=== PATIENT | female | born 1970 | race African-American/Black ===

== ENCOUNTER 2020-10-10 09:12 | Emergency (ER) | payer MEDICAID, OTHER ==
[~2020-10-10] VITALS: Ht 167.6 cm; Wt 64.9 kg
[2020-10-10 10:01] VITALS: BP 127/87
[2020-10-10 10:33] LABS: Urine Bacteria NONE SEEN /hpf (None Seen); Urine Blood Negative /uL (Negative); Urine Mucus FEW (None Seen); Urine Specific Gravity 1.032 (1.001-1.035); Urine WBC 37 /hpf (0 - 5)
== END 2020-10-10 10:22 | disposition home or self-care (01) ==
LOC: ER 09:12
DX: N39.0 Urinary tract infection, site not specified (principal); Z88.2 Allergy status to sulfonamides
CPT/HCPCS: 81001

== ENCOUNTER 2021-01-28 11:05 | Emergency (ER) | payer MEDICAID ==
[~2021-01-28] VITALS: Ht 167.6 cm; Wt 63.5 kg
[2021-01-28 12:09] VITALS: BP 143/82
[2021-01-28] MEDS ORDERED: CIPR-173 PO (12:24)
[2021-01-28] MEDS ORDERED: PHEN200T16 PO (12:24)
[2021-01-28 12:32] LABS: Urine Bacteria FEW /hpf (None Seen); Urine Blood 3+ /uL (Negative); Urine Mucus FEW (None Seen); Urine Specific Gravity 1.027 (1.001-1.035); Urine WBC 62 /hpf (0 - 5)
== END 2021-01-28 12:31 | disposition home or self-care (01) ==
LOC: ER 11:05
DX: R30.9 Painful micturition, unspecified (principal); R35.0 Frequency of micturition; R39.15 Urgency of urination; M54.50 Low back pain, unspecified; Z90.49 Acquired absence of other specified parts of digestive tract; Z79.2 Long term (current) use of antibiotics; Z79.899 Other long term (current) drug therapy; Z88.2 Allergy status to sulfonamides
CPT/HCPCS: 81001

== ENCOUNTER 2021-05-17 15:48 | Emergency (ER) | payer MEDICAID ==
[~2021-05-17] VITALS: Ht 167.6 cm; Wt 65.8 kg
[~2021-05-17 15:48] MED LIST: CIPR-173 PO; PHEN200T16 PO
[2021-05-17 18:43] LABS: Basophils # (auto) 0 10 ^3/uL (0-0.2); Basophils % (auto) 0.3 % (0.0-2.0); Eosinophils # (auto) 0.1 10 ^3/uL (0-0.8); Eosinophils % (auto) 1.4 % (0.0-7.0); Hematocrit 30.4 % (36.0-46.0); Hemoglobin 10.2 g/dL (12.2-16.2); Lymphocytes # (auto) 1.4 10 ^3/uL (0.4-5.4); Mean Corpuscular Hemoglobin 31.1 pg (28.0-32.0); Mean Corpuscular Hgb Conc. 33.6 g/dL (32.0-36.0); Mean Corpuscular Volume 92.5 fL (80.0-100.0); Monocytes # (auto) 0.1 10 ^3/uL (0-1.3); Monocytes % (auto) 2.1 % (0.0-12.0); Neutrophils # (auto) 3.8 10 ^3/uL (1.6-8.6); Neutrophils % (auto) 70.2 % (37.0-80.0); Nucleated Red Blood Cells % 0.1 %; Red Blood Cells 3.29 10^6/uL (4.0-5.20); Red Cell Distribution Width 25.2 % (11.8-14.3); White Blood Cell 5.5 10^3/uL (4.4-10.8)
[2021-05-17 18:59] LABS: INR 1.04 (0.9-1.15); Partial Thromboplastin Time 23.6 sec (23.6-33.0)
[2021-05-17 19:03] LABS: Urine Bacteria FEW /hpf (None Seen); Urine Blood 1+ /uL (Negative); Urine Hyaline Cast FEW /lpf (0 - 2); Urine Mucus FEW (None Seen); Urine Specific Gravity 1.029 (1.001-1.035); Urine WBC 3 /hpf (0 - 5)
[2021-05-17 19:07] LABS: Albumin 4.7 g/dL (3.4-5.0); Calcium 9.8 mg/dL (8.5-10.1)
[2021-05-17 19:09] LABS: Bilirubin, Total 0.6 mg/dL (0.2-1.0); Total Protein 9.4 g/dL (6.4-8.2)
[2021-05-17] MEDS ORDERED: CEPH-322 PO (21:57)
[2021-05-17 22:13] VITALS: BP 140/100
[2021-05-17] MEDS ORDERED: KETOROLAC TROMETH 60MG/2ML VIAL IM ONE (22:15)
== END 2021-05-17 22:27 | disposition home or self-care (01) ==
LOC: ER 15:48
DX: N39.0 Urinary tract infection, site not specified (principal); N93.8 Other specified abnormal uterine and vaginal bleeding; Z90.49 Acquired absence of other specified parts of digestive tract; Z79.2 Long term (current) use of antibiotics; Z79.899 Other long term (current) drug therapy; Z88.2 Allergy status to sulfonamides
CPT/HCPCS: 36415; 80053; 81001; 81025; 84702; 85025; 85610; 85730; 86850; 86900; 86901; 93005

== ENCOUNTER → 2021-12-24 | Emergency (ER) | payer MEDICAID ==
[~2021-12-24] VITALS: Ht 167.6 cm; Wt 66.0 kg
[~2021-12-24] MED LIST changes: +CEPH-322 PO; +HYDROcodone-ACET 10/325MG TAB PO ONE; +cefTRIAXone 1GM/50ML D5W 50 ML IV ONE
[2021-12-24 13:54] VITALS: BP 119/79
[2021-12-24 14:41] LABS: Basophils # (auto) 0 10 ^3/uL (0-0.2); Basophils % (auto) 0.8 % (0.0-2.0); Eosinophils # (auto) 0.1 10 ^3/uL (0-0.8); Eosinophils % (auto) 2.7 % (0.0-7.0); Hemoglobin 8.8 g/dL (12.2-16.2); Lymphocytes # (auto) 1.5 10 ^3/uL (0.4-5.4); Monocytes # (auto) 0.3 10 ^3/uL (0-1.3); White Blood Cell 4.8 10^3/uL (4.4-10.8)
[2021-12-24 14:45] LABS: Hematocrit 28.6 % (36.0-46.0); Lymphocytes % (auto) 30.6 % (10.0-50.0); Mean Corpuscular Hemoglobin 24.7 pg (28.0-32.0); Mean Corpuscular Hgb Conc. 30.8 g/dL (32.0-36.0); Mean Corpuscular Volume 80.2 fL (80.0-100.0); Monocytes % (auto) 6.3 % (0.0-12.0); Neutrophils # (auto) 2.9 10 ^3/uL (1.6-8.6); Neutrophils % (auto) 59.6 % (37.0-80.0); Nucleated Red Blood Cells % 0.1 %; Red Blood Cells 3.57 10^6/uL (4.0-5.20)
[2021-12-24 14:58] LABS: INR 1.01 (0.9-1.15); Partial Thromboplastin Time 25.1 sec (24.6-33.4)
[2021-12-24 15:03] LABS: BUN/Creatinine Ratio 9.9; Calcium 8.4 mg/dL (8.5-10.1); Potassium 4.1 mmol/L (3.5-5.1)
[2021-12-24 15:05] LABS: Bilirubin, Total 0.2 mg/dL (0.2-1.0); Total Protein 8.2 g/dL (6.4-8.2)
[2021-12-24 16:30] LABS: Urine Bacteria NONE SEEN /hpf (None Seen); Urine Blood 3+ /uL (Negative); Urine Specific Gravity 1.023 (1.001-1.035); Urine WBC 48 /hpf (0 - 5)
== END | disposition left against medical advice (07) ==
LOC: ER 13:30
DX: N93.8 Other specified abnormal uterine and vaginal bleeding (principal); N39.0 Urinary tract infection, site not specified; D25.9 Leiomyoma of uterus, unspecified; Z90.49 Acquired absence of other specified parts of digestive tract; Z90.89 Acquired absence of other organs; Z88.2 Allergy status to sulfonamides; Z53.29 Procedure and treatment not carried out because of patient's decision for other reasons
CPT/HCPCS: 36415; 76830; 76856; 80053; 81001; 85025; 85610; 85730; 86850; 86900; 86901

== ENCOUNTER 2022-06-01 12:38 | Emergency (ER) | payer MEDICAID ==
[~2022-06-01 12:38] MED LIST changes: -HYDROcodone-ACET 10/325MG TAB PO ONE; -cefTRIAXone 1GM/50ML D5W 50 ML IV ONE
[2022-06-02] MEDS ORDERED: CIPR500T4 PO (13:57)
== END 2022-06-01 13:23 | disposition left against medical advice (07) ==
LOC: ER 12:38
DX: M54.89 Other dorsalgia (principal); Z53.21 Procedure and treatment not carried out due to patient leaving prior to being seen by health care provider

== ENCOUNTER 2022-06-02 07:42 | Emergency (ER) | payer MEDICAID ==
[~2022-06-02] VITALS: Ht 167.6 cm; Wt 70.9 kg
[2022-06-02 08:41] LABS: Urine Bacteria FEW /hpf (None Seen); Urine Blood Negative /uL (Negative); Urine Hyaline Cast FEW /lpf (0 - 2); Urine Mucus FEW (None Seen); Urine Specific Gravity 1.022 (1.001-1.035); Urine WBC 2 /hpf (0 - 5)
[2022-06-02 10:12] LABS: Potassium 3.1 mmol/L (3.5-5.1)
[2022-06-02 10:19] LABS: Albumin 3.4 g/dL (3.4-5.0); BUN/Creatinine Ratio 12.7 (10.0-20.0); Bilirubin, Total 0.2 mg/dL (0.2-1.0); CRP High Sensitivity 0.06 mg/dL (< 0.3); Calcium 8.2 mg/dL (8.5-10.1); Total Protein 7.5 g/dL (6.4-8.2)
[2022-06-02 10:30] LABS: Eosinophils # (auto) 0.2 10 ^3/uL (0-0.8); Lymphocytes # (auto) 1.9 10 ^3/uL (0.4-5.4); Neutrophils # (auto) 2.8 10 ^3/uL (1.6-8.6); White Blood Cell 5.3 10^3/uL (4.4-10.8)
[2022-06-02 10:32] LABS: Basophils # (auto) 0.1 10 ^3/uL (0-0.2); Basophils % (auto) 1.1 % (0.0-2.0); Eosinophils % (auto) 3.7 % (0.0-7.0); Hematocrit 23.3 % (36.0-46.0); Hemoglobin 7.5 g/dL (12.2-16.2); Lymphocytes % (auto) 35.2 % (10.0-50.0); Mean Corpuscular Hemoglobin 23.8 pg (28.0-32.0); Mean Corpuscular Hgb Conc. 32.1 g/dL (32.0-36.0); Mean Corpuscular Volume 74.1 fL (80.0-100.0); Monocytes # (auto) 0.3 10 ^3/uL (0-1.3); Monocytes % (auto) 6.2 % (0.0-12.0); Neutrophils % (auto) 53.8 % (37.0-80.0); Nucleated Red Blood Cells % 0.1 %; Red Blood Cells 3.14 10^6/uL (4.0-5.20)
[2022-06-02 10:55] LABS: Red Cell Distribution Width 28.5 % (11.8-14.3)
[2022-06-02] MEDS ORDERED: POTASSIUM CHL 20 Meq TABLET PO ONE (12:00)
[2022-06-02 13:27] VITALS: BP 136/89
[2022-06-02] MEDS ORDERED: CIPR500T4 PO (13:57)
== END 2022-06-02 14:08 | disposition home or self-care (01) ==
LOC: ER 07:42
DX: M54.50 Low back pain, unspecified (principal); N30.00 Acute cystitis without hematuria; Z32.02 Encounter for pregnancy test, result negative; Z90.49 Acquired absence of other specified parts of digestive tract; Z98.51 Tubal ligation status; Z88.2 Allergy status to sulfonamides
CPT/HCPCS: 36415; 72131; 80053; 81001; 81025; 85025; 85652; 86141; 87086